=== PATIENT | female | born 1975 | race Caucasian/White ===

== ENCOUNTER 2018-01-27 10:02 | Emergency (ER) | payer BC ==
--- NOTE | 2018-01-27 10:39 | EDM.PDOC ---
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 Past medical history: As per history of present illness and as reviewed below otherwise noncontributory. Surgical history: As per history of present illness and as reviewed below otherwise noncontributory. Social history: No reported history of drug or alcohol abuse. Family history: As per history of present illness and as reviewed below otherwise noncontributory. Physical exam: Oriented female acting age-appropriate and answering questions appropriately she is speaking in full sentences without any shortness of breath she is nontoxic in her appearance Warm and dry. HEENT: Atraumatic, normocehpalic, pupils reactive, negative for conjunctival pallor or scleral icterus, mucous membranes moist, throat clear, neck supple, nontender, trachea midline. Lungs: Clear to auscultation, breath sounds equal bilaterally, chest non tender. Heart: S1S2, regular, negative for clicks, rubs, or JVD. Abdomen: Soft, nondistended, nontender. Negative for masses or hepatossplenmegaly. Negative for costovertebral tenderness. Pelvis: Stable nontender. Genitourinary: Deferred. Rectal: Deferred Extremities: Atraumatic, negative for cords or calf pain. Neurovascular unremarkable. Neuro: Awake, alert, oriented. Cranial nerves II through XII unremarkable. Cerebellum unremarkable. Motor and sensory unremarkable throughout. Exam nonfocal. Diagnostics: []rapid strep Therapeutics: [] Impression: []pharyngitis canker sores Plan: []augmentin [place] or [place] for canker sores rinse and spit prn Definitive disposition and diagnosis as appropriate pending reevaluation and review of above. Onset: Gradual Duration: Day(s): Location: Reports: Face, Neck Quality: Reports: Ache Severity: Moderate Improves with: Reports: None Worsens with: Reports: None Associated Symptoms: Reports: No Other Symptoms - Related Data Allergies Allergy/AdvReac Type Severity Reaction Status Date / Time No Known Allergies Allergy Verified 01/27/18 10:42 Home Meds: Home Meds Amoxicillin/Potassium Clav [Augmentin 875-125 Tablet] 1 each PO BID #20 tablet 01/27/18 [Rx] ED ROS ENT - Review of Systems Review Of Systems: ROS reveals no pertinent complaints other than HPI. ED EXAM, ENT - Physical Exam Exam: See Below (see dictation) Course - Vital Signs Last Recorded V/S: Last Vital Signs Temp 36.1 C 01/27/18 10:40 Pulse 89 01/27/18 10:40 Resp 20 01/27/18 10:40 BP 121/73 01/27/18 10:40 Pulse Ox 100 01/27/18 10:40 - Orders/Labs/Meds Orders: Active Orders 24 hr Category Date Time Status CULTURE STREP A CONFIRMATION [RM] Stat Lab 01/27/18 11:33 Results STREP SCRN A RAPID W CULT CONF [RM] Stat Lab 01/27/18 11:33 Ordered Meds: Medications Discontinued Medications Generic Name Dose Route Start Last Admin Trade Name Jennifer PRN Reason Stop Dose Admin Amoxicillin/Clavulanate Potassium 1 tab 01/27/18 12:59 01/27/18 13:07 Augmentin 875 Mg/125 Mg PO 01/27/18 13:00 1 tab ONETIME ONE Administration Benzocaine 2 each 01/27/18 12:59 01/27/18 13:07 Hurricaine One 20% MUCMEM 01/27/18 13:00 2 each ONETIME ONE Administration Lidocaine HCl 15 ml 01/27/18 12:59 01/27/18 13:07 Xylocaine 2% Viscous PO 01/27/18 13:00 15 ml ONETIME ONE Administration Departure - Departure Time of Disposition: 13:21 Disposition: Home, Self-Care 01 Condition: Good Clinical Impression: Canker sores oral Pharyngitis Qualifiers: Pharyngitis/tonsillitis etiology: unspecified etiology Qualified Code(s): J02.9 - Acute pharyngitis, unspecified - Discharge Information Prescriptions: Amoxicillin/Potassium Clav [Augmentin 875-125 Tablet] 1 each PO BID #20 tablet Referrals: Geovanny Mendez MD [Primary Care Provider] - Forms: ED Department Discharge Additional Instructions: The following information is given to patients seen in the emergency department who are being discharged to home. This information is to outline your options for follow-up care. We provide all patients seen in our emergency department with a follow-up referral. The need for follow-up, as well as the timing and circumstances, are variable depending upon the specifics of your emergency department visit. If you don't have a primary care physician on staff, we will provide you with a referral. We always advise you to contact your personal physician following an emergency department visit to inform them of the circumstance of the visit and for follow-up with them and/or the need for any referrals to a consulting specialist. The emergency department will also refer you to a specialist when appropriate. This referral assures that you have the opportunity for followup care with a specialist. All of these measure are taken in an effort to provide you with optimal care, which includes your followup. Under all circumstances we always encourage you to contact your private physician who remains a resource for coordinating your care. When calling for followup care, please make the office aware that this follow-up is from your recent emergency room visit. If for any reason you are refused follow-up, please contact the [facility] emergency department at and asked to speak to the emergency department charge nurse. Because of the length of time he had this sore throat will treat with Augmentin Prescription has been sent to your pharmacy Dental balls will help with the discomfort you're having from the canker sores in her mouth EScription for Clarisse's medical mouthwash was given - My Orders Last 24 Hours: My Active Orders 01/27/18 11:33 CULTURE STREP A CONFIRMATION [RM] Stat STREP SCRN A RAPID W CULT CONF [RM] Stat - Assessment/Plan Last 24 Hours: My Active Orders 01/27/18 11:33 CULTURE STREP A CONFIRMATION [RM] Stat STREP SCRN A RAPID W CULT CONF [RM] Stat
[2018-01-27] MEDS ORDERED: Lidocaine 2% Viscous Solution 15 ML Cup PO ONE (12:59)
[2018-01-27] MEDS ORDERED: Amoxicillin/Clavulanate K 875-125 MG Tab PO ONE (12:59)
[2018-01-27] MEDS ORDERED: Benzocaine 20% Topical Spray UD MUCMEM ONE (12:59)
== END 2018-01-27 13:22 | disposition home or self-care (01) ==
LOC: MW.ED 10:02
DX: J02.9 Acute pharyngitis, unspecified (principal); K12.0 Recurrent oral aphthae
CPT/HCPCS: 87081; 87880; 99283; A9270